=== PATIENT | female | born 1950 | race Caucasian/White ===

== ENCOUNTER → 2018-10-27 | Outpatient (CLI) | payer MEDICARE ==
--- NOTE | 2018-10-27 15:58 | Diagnostic Imaging Report ---
EXAMINATION: CT of the abdomen and pelvis without contrast. TECHNIQUE: Spiral CT images of the abdomen and pelvis were performed from the lung bases to the lesser trochanters. No intravenous contrast was given per renal stone protocol. Coronal and sagittal reformatted images were obtained. Low-dose technique was utilized. DLP: 218.50 mGy-cm COMPARISON: None. CLINICAL HISTORY: Dysuria, hematuria with left flank pain. DISCUSSION: ABSENCE OF INTRAVENOUS CONTRAST DECREASES SENSITIVITY FOR DETECTION OF FOCAL LESIONS AND VASCULAR PATHOLOGY. ABDOMEN/PELVIS: LOWER THORAX: Coronary artery calcification with multiple coronary stents. Prosthetic mitral valve. The heart is enlarged. Sternotomy wire sutures. HEPATOBILIARY:No focal hepatic lesions. No biliary ductal dilation. The gallbladder is normal. 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 PANCREAS: No focal masses or ductal dilatation. ADRENALS: No adrenal nodules. KIDNEYS/URETERS: No hydronephrosis, stones, or solid mass lesions. PELVIC ORGANS/BLADDER: The bladder is normal. Round curvilinear calcification in the mid pelvis likely represents a partially calcified peritoneal inclusion cyst or enteric duplication cyst. PERITONEUM/RETROPERITONEUM: No free air or fluid. LYMPH NODES: No intra-abdominal,retroperitoneal, pelvic or inguinal lymphadenopathy. VESSELS: Vascular calcification. GI TRACT: No distention or wall thickening. BONES AND SOFT TISSUES: No bony destructive lesions. Degenerative changes of the spine. No soft tissue abnormalities. IMPRESSION: 1. No evidence of renal stones or hydronephrosis. 2. No acute abnormality within the abdomen or pelvis. Signed by: Dr. Rishabh Cox DO on 10/27/2018 3:55 PM
== END ==
LOC: CT 12:47
PROVIDERS: ATTEND Family Medicine
DX: R31.29 Other microscopic hematuria (principal)
CPT/HCPCS: 74176